=== PATIENT | female | born 1985 | race Caucasian/White ===

== ENCOUNTER 2017-02-26 00:30 | Emergency (ER) | payer BC ==
--- NOTE | ~2017-02-26 | ER ---
PATIENT'S NAME: CONSTANTIN SMALLWOOD [facility] AGE: 31 Y [address] ROOM: [place] [address] LOCATION: [facility] ADMIT DATE: 02/26/2017 ER/Outpatient Report DISCHARGE DATE: 02/26/2017 FAMILY PHYSICIAN: Physician, Unknown ATTENDING PHYSICIAN: Erik Dunn Time of Arrival: 0030 hours. Time of Evaluation: 0045 hours. CHIEF COMPLAINT: This is a 31-year-old female. She is previously reasonably healthy. She is in with a complaint of nausea and vomiting. HISTORY OF PRESENT ILLNESS: [place] [facility] [place] She drank about a half a bottle of wine. When she got home, she became nauseated. She began vomiting and has been vomiting since that began about 6 hours ago. PAST MEDICAL HISTORY: Significant for obesity. She has a lap band procedure. She states she recently had her lap band tightened about 1 week ago. SOCIAL HISTORY: She is a nonsmoker. She drinks alcohol occasionally. She is . PHYSICAL EXAMINATION: GENERAL: An alert, cooperative female, who is pale, in no acute distress. VITAL SIGNS: Stable. She is mildly tachycardic, pulse is 91, blood pressure is 110/70. SKIN: Warm and dry. Color is normal. HEAD, EARS, EYES, NOSE, AND THROAT: Revealed bilateral conjunctivitis, is otherwise unremarkable. NECK: Supple. HEART: Normal. LUNGS: Normal. ABDOMEN: Soft. She has no localized tenderness. EXTREMITIES: Normal. NEUROLOGIC: Normal. LABORATORY DATA AND X-RAYS: CBC and metabolic panel were unremarkable. EMERGENCY DEPARTMENT COURSE: The patient was given 4 mg of Zofran IV with resolution of her nausea and vomiting. She was given 1 L normal saline IV, and she felt improved. PATIENT'S NAME: CONSTANTIN SMALLWOOD [facility] AGE: 31 Y [address] ROOM: [place] [address] LOCATION: [facility] ADMIT DATE: 02/26/2017 ER/Outpatient Report DISCHARGE DATE: 02/26/2017 FAMILY PHYSICIAN: Physician, Unknown ATTENDING PHYSICIAN: Erik Dunn ASSESSMENT: Gastritis. PLAN: Frequent small amounts of clear liquids. Zofran ODT as needed for nausea. Follow up with her regular doctor as needed. MD MAURISIO HANNA/modl /[id number] d: 02/26/17 0354 t: 02/27/17 0601, OUTPATIENT REPORT
[2017-02-26 01:27] LABS: BASOPHIL % 0.5 %; EOSINOPHIL % 0.4 %; HEMATOCRIT 42.7 % (33.0-46.0); HEMOGLOBIN 14.3 g/dL (11.0-15.0); IMMATURE GRANULOCYTE % 0.7 %; LYMPHOCYTE % 34.9 %; MCHC 33.5 gm/dL (32.0-36.5); MCV 89.7 fl (83.0-98.0); MONOCYTE # 0.3 K/uL (0.0-1.0); MONOCYTE % 4.5 %; MPV 10.2 fl (9.4-12.4); NEUTROPHIL # (ANC) 3.3 K/uL (1.8-7.8); NRBC % 0 /100WBC (0-0.00); PLATELET COUNT 229 K/uL (150-450); RBC 4.76 M/uL (3.50-5.50); RDW-CV 12.2 % (11.9-14.6); WBC 5.6 K/uL (4.0-11.0)
[2017-02-26 01:42] LABS: ALBUMIN 3.9 gm/dL (3.5-5.0); ALK PHOS 65 IU/L (33-138); ALT 28 IU/L (12-78); AST 23 IU/L (10-40); BLOOD UREA NITROGEN 10 mg/dL (6-24); CALCIUM 8.3 mg/dL (8.5-10.5); CREATININE 0.7 mg/dL (0.5-1.1); ESTIMATED GFR (MDRD EQUATION) > 60; POTASSIUM 3.8 mMol/L (3.7-5.1); TOTAL BILIRUBIN 0.2 mg/dL (0.0-1.5); TOTAL PROTEIN 6.9 g/dL (6.0-8.4)
[2017-02-26 01:43] LABS: ANION GAP 19.8 (10.0-19.0); CHLORIDE 116 mMol/L (96-110); CO2 15 mMol/L (22-32); SODIUM 147 mMol/L (135-145)
== END 2017-02-26 02:16 | disposition disaster alternative care site (69) ==
LOC: GMED 00:30
PROVIDERS: Emergency Medicine
DX: K29.70 Gastritis, unspecified, without bleeding (principal); Z98.890 Other specified postprocedural states; Z91.011 Allergy to milk products
CPT/HCPCS: J7030

== ENCOUNTER → 2017-02-26 | Outpatient (CLI) | payer BC | END | disposition disaster alternative care site (69) | LOC: GAMB 00:04 | DX: R11.2 Nausea with vomiting, unspecified (principal); R63.0 Anorexia; R42 Dizziness and giddiness | CPT/HCPCS: A0425; A0429; J2405 ==